=== PATIENT | female | born 1960 | race African-American/Black ===

== ENCOUNTER 2019-02-15 10:43 | Inpatient (IN) | payer MEDICAID, OTHER ==
[~2019-02-15] VITALS: Ht 160 cm; Wt 80.3 kg
[~2019-02-15 10:43] MED LIST: CLON0.1T PO; HYDR-523 PO; IBUP50DR41 PO; RANI15SY PO
[2019-02-15] MEDS ORDERED: SODIUM CHLORIDE 0.9% 1,000 ML IV ONE (11:44)
[2019-02-15] MEDS ORDERED: FAMOTIDINE 20MG/2ML VIAL IV ONE (12:15)
[2019-02-15 12:31] LABS: CLARITY URINE TURBID (CLEAR); COLOR URINE DARK YELLOW (YELLOW); KETONES URINE 1+ (NEGATIVE); LEUKOCYTE ESTERASE URINE 2+ (NEGATIVE); NITRITE URINE POSITIVE (NEGATIVE); OCCULT BLOOD URINE NEGATIVE (NEGATIVE); PH URINE 5.5 (4.5-8.0); PROTEIN URINE 1+ (NEGATIVE); SPECIFIC GRAVITY URINE 1.033 (1.005-1.030)
[2019-02-15 12:33] LABS: BASOPHILS % 0.4 % (0.0-2.0); HEMATOCRIT. 37.8 % (36.0-48.0); HEMOGLOBIN. 12.6 g/dL (12.0-16.0); LYMPHOCYTES % 35.5 % (20.0-50.0); MEAN CORPUSCULAR VOLUME 92.7 fL (81.0-99.0); MEAN PLATELET VOLUME 8.4 fl (7.4-10.4); MONOCYTES % 14.4 % (2.0-8.0); NEUTROPHILS % 47.7 % (40.0-76.0); PLATELET 289 x1000/uL (130-400); RED BLOOD CELL COUNT 4.07 mill/uL (4.2-5.4); RED CELL DISTRIBUTION WIDTH 14.7 % (11.6-14.6)
[2019-02-15 12:41] LABS: CHLORIDE 107 mEq/L (98-107)
[2019-02-15 12:44] LABS: PARTIAL THROMBOPLASTIN TIME 30.1 sec (23.4-31.0); PROTHROMBIN TIME 10.2 sec (9.6-11.0)
[2019-02-15 12:45] LABS: ETHANOL BLOOD < 10 mg/dL
[2019-02-15 12:46] LABS: *AMPHETAMINES SCREEN URINE NEGATIVE (NEGATIVE)
[2019-02-15 12:47] LABS: *BARBITURATES SCREEN URINE NEGATIVE (NEGATIVE); *BENZODIAZEPINES SCREEN URINE NEGATIVE (NEGATIVE); *COCAINE SCREEN URINE NEGATIVE (NEGATIVE); CANNABINOID URINE SCREEN PRESUMTIVE POSITIVE (NEGATIVE); METHADONE URINE SCREEN NEGATIVE (NEGATIVE); OPIATES URINE SCREEN NEGATIVE (NEGATIVE); PHENCYCLIDINE URINE SCREEN NEGATIVE (NEGATIVE)
[2019-02-15] MEDS ORDERED: PIPERACILLIN/TAZ 3.375G PREMIX 50 ML IV ONE (14:00)
[2019-02-15] MEDS ORDERED: ACETAMINOPHEN 325MG TABLET PO PRN (15:00)
[2019-02-15] MEDS ORDERED: ONDANSETRON HCL 4MG/2ML INJ IV PRN (15:00)
[2019-02-15 16:00] VITALS: BP 129/68
[2019-02-15] MEDS ORDERED: POTASSIUM CHLORIDE 20MEQ TABLET SR PO NR (17:00)
[2019-02-15 17:15] VITALS: BP 129/68
[2019-02-15] MEDS ORDERED: CEFTRIAXONE 1 G PREMIX 50 ML IV SCH (18:00)
[2019-02-15] MEDS: HYDROMORPHONE HCL/PF 2MG/ML CPJ IV PRN (18:10)
[2019-02-15] MEDS ORDERED: DICL75TA5 MT (18:38)
[2019-02-15 20:00] VITALS: BP 120/71
[2019-02-16] VITALS: BP 128/62
[2019-02-16] MEDS: HYDROMORPHONE HCL/PF 2MG/ML CPJ IV PRN ×4 (00:21→21:28)
[2019-02-16 04:00] VITALS: BP 116/60
[2019-02-16 07:33] LABS: CHLORIDE 109 mEq/L (98-107)
[2019-02-16 07:34] LABS: BASOPHILS % 0.3 % (0.0-2.0); EOSINOPHILS % 4.3 % (0.0-5.0); HEMATOCRIT. 37.2 % (36.0-48.0); HEMOGLOBIN. 12.4 g/dL (12.0-16.0); LYMPHOCYTES % 37.1 % (20.0-50.0); MEAN CORPUSCULAR HEMOGLOBIN 31.1 pg (28.0-32.0); MEAN CORPUSCULAR VOLUME 93.4 fL (81.0-99.0); MEAN PLATELET VOLUME 8.6 fl (7.4-10.4); MONOCYTES % 13.5 % (2.0-8.0); NEUTROPHILS % 44.8 % (40.0-76.0); PLATELET 278 x1000/uL (130-400); RED BLOOD CELL COUNT 3.98 mill/uL (4.2-5.4); RED CELL DISTRIBUTION WIDTH 14.4 % (11.6-14.6)
[2019-02-16 08:00] VITALS: BP 123/72
[2019-02-16] MEDS: FAMOTIDINE 20MG/2ML VIAL IV SCH (08:19)
[2019-02-16 12:00] VITALS: BP 134/82
[2019-02-16 16:00] VITALS: BP 138/79
[2019-02-16] MEDS: CEFTRIAXONE 1 G PREMIX 50 ML IV SCH (17:39)
[2019-02-16 20:00] VITALS: BP 158/73
[2019-02-17] VITALS: BP 135/62
[2019-02-17] MEDS: HYDROMORPHONE HCL/PF 2MG/ML CPJ IV PRN ×4 (02:11→22:53)
[2019-02-17 04:00] VITALS: BP 121/61
[2019-02-17 07:05] LABS: CHLORIDE 106 mEq/L (98-107)
[2019-02-17 07:06] LABS: BASOPHILS % 0.5 % (0.0-2.0); EOSINOPHILS % 2.6 % (0.0-5.0); HEMATOCRIT. 36.9 % (36.0-48.0); HEMOGLOBIN. 12.1 g/dL (12.0-16.0); LYMPHOCYTES % 45.1 % (20.0-50.0); MEAN CORPUSCULAR HEMOGLOBIN 30.7 pg (28.0-32.0); MEAN CORPUSCULAR VOLUME 93.8 fL (81.0-99.0); MEAN PLATELET VOLUME 9.5 fl (7.4-10.4); MONOCYTES % 11.1 % (2.0-8.0); NEUTROPHILS % 40.7 % (40.0-76.0); PLATELET 171 x1000/uL (130-400); RED BLOOD CELL COUNT 3.93 mill/uL (4.2-5.4); RED CELL DISTRIBUTION WIDTH 14.5 % (11.6-14.6)
[2019-02-17 08:00] VITALS: BP 121/71
[2019-02-17] MEDS: FAMOTIDINE 20MG/2ML VIAL IV SCH (09:27)
[2019-02-17 12:00] VITALS: BP 124/70
[2019-02-17] MEDS ORDERED: LIDOCAINE HCL 1% 20ML VIAL (Pyxis) INJ ONE (14:37)
[2019-02-17] MEDS ORDERED: SODIUM BICARBONATE 4% (2.4MEQ) 5ML VIAL IV ONE (14:38)
[2019-02-17 16:00] VITALS: BP 105/57
[2019-02-17] MEDS: CEFTRIAXONE 1 G PREMIX 50 ML IV SCH (18:04)
[2019-02-17 20:00] VITALS: BP 115/67
[2019-02-18] VITALS: BP 106/66
[2019-02-18] MEDS: HYDROMORPHONE HCL/PF 2MG/ML CPJ IV PRN (02:23)
[2019-02-18 04:00] VITALS: BP 102/61
[2019-02-18 07:00] LABS: CHLORIDE 105 mEq/L (98-107)
[2019-02-18 07:05] LABS: BASOPHILS % 0.5 % (0.0-2.0); EOSINOPHILS % 2.7 % (0.0-5.0); HEMATOCRIT. 38.7 % (36.0-48.0); HEMOGLOBIN. 12.9 g/dL (12.0-16.0); LYMPHOCYTES % 40.1 % (20.0-50.0); MEAN CORPUSCULAR HEMOGLOBIN 31.2 pg (28.0-32.0); MEAN CORPUSCULAR VOLUME 93.2 fL (81.0-99.0); MEAN PLATELET VOLUME 8.5 fl (7.4-10.4); MONOCYTES % 11.6 % (2.0-8.0); NEUTROPHILS % 45.1 % (40.0-76.0); PLATELET 316 x1000/uL (130-400); RED BLOOD CELL COUNT 4.15 mill/uL (4.2-5.4)
[2019-02-18 08:00] VITALS: BP 109/67
[2019-02-18] MEDS: FAMOTIDINE 20MG/2ML VIAL IV SCH (08:48)
[2019-02-18 12:00] VITALS: BP 115/67
[2019-02-18] MEDS ORDERED: IOHEXOL-300 100 ML BOTTLE ONE (14:33)
[2019-02-18] MEDS ORDERED: SIMETHICONE 40 MG/0.6 ML 30ML ONE (14:33)
[2019-02-18] MEDS ORDERED: PROPOFOL 200MG/20ML VIAL IV ONE (15:58)
[2019-02-18] MEDS ORDERED: ROCURONIUM BROMIDE 10MG/ML VIAL 5ML IV ONE (15:58)
[2019-02-18] MEDS ORDERED: NEOSTIGMINE METHYLSULFATE 1MG/ML 10 ML VIAL ONE (15:58)
[2019-02-18] MEDS ORDERED: FENTANYL CITRATE/PF 50MCG/ML 2ML VIAL ONE (15:58)
[2019-02-18] MEDS ORDERED: GLYCOPYRROLATE 0.2 MG/ML 2ML VIAL ONE (15:59)
[2019-02-18] MEDS ORDERED: MIDAZOLAM HCL 2 MG/2 ML VIAL ONE (15:59)
[2019-02-18] MEDS ORDERED: DEXAMETHASONE 4MG/ML 1ML VIAL ONE (16:02)
[2019-02-18] MEDS ORDERED: ONDANSETRON HCL 4MG/2ML INJ ONE (16:02)
[2019-02-18] MEDS ORDERED: SODIUM CHLORIDE 0.9% 10ML VIAL ONE ×2 (16:49→16:59)
[2019-02-18] MEDS ORDERED: EPHEDRINE SULFATE 50MG/ML VIAL ONE ×2 (16:49→16:59)
[2019-02-18] MEDS ORDERED: PHENYLEPHRINE HCL 10 MG/ML 1ML (IV VIAL) IV ONE (16:59)
[2019-02-18] MEDS ORDERED: ONDANSETRON HCL 4MG/2ML INJ IV PRN (17:15)
[2019-02-18] MEDS ORDERED: LABETALOL 5MG/ML SYR 20 MG/4 ML SYRINGE IV PRN (17:15)
[2019-02-18] MEDS ORDERED: MEPERIDINE HCL/PF 25MG/ML CPJ IV PRN (17:15)
[2019-02-18] MEDS ORDERED: HYDROMORPHONE HCL/PF 2MG/ML CPJ IV PRN (17:15)
[2019-02-18] MEDS ORDERED: CEFTRIAXONE 1 G PREMIX 50 ML IV SCH (18:05)
[2019-02-18 20:34] VITALS: BP 96/68
[2019-02-19] VITALS: BP 117/67
[2019-02-19 04:00] VITALS: BP 100/58
[2019-02-19 08:00] VITALS: BP 106/62
[2019-02-19] MEDS: FAMOTIDINE 20MG/2ML VIAL IV SCH (08:09)
[2019-02-19 08:43] VITALS: BP 106/62
== END 2019-02-19 10:26 | disposition home or self-care (01) ==
LOC: ER 10:43 → 6EST 13:46 → EDBEDREQTM 14:02 → EDBEDREQ 14:02 → ENRESERV 14:57
PROVIDERS: ADMIT Internal Medicine; ATTEND Internal Medicine
PROC: 0FC98ZZ Extirpation of Matter from Common Bile Duct, Via Natural or Artificial Opening Endoscopic (ICD-10-PCS; principal; 2019-02-18)
PROC: BF111ZZ Fluoroscopy of Biliary and Pancreatic Ducts using Low Osmolar Contrast (ICD-10-PCS; 2019-02-18)
PROC: 0FPB8DZ Removal of Intraluminal Device from Hepatobiliary Duct, Via Natural or Artificial Opening Endoscopic (ICD-10-PCS; 2019-02-18)
DX: K80.30 Calculus of bile duct with cholangitis, unspecified, without obstruction (principal); K85.10 Biliary acute pancreatitis without necrosis or infection; E66.9 Obesity, unspecified; N39.0 Urinary tract infection, site not specified; F12.90 Cannabis use, unspecified, uncomplicated; E87.6 Hypokalemia; Z90.49 Acquired absence of other specified parts of digestive tract; Z68.31 Body mass index [BMI] 31.0-31.9, adult; Z90.710 Acquired absence of both cervix and uterus; Z90.721 Acquired absence of ovaries, unilateral; Z88.2 Allergy status to sulfonamides; Z79.899 Other long term (current) drug therapy
CPT/HCPCS: 36415; 74330; 76000; 76705; 76770; 80048; 80076; 80305; 80320; 84484; 88300; 93970; 99285; C1726; C1769; C1893; J0696; J1100; J1170; J2250; J2370; J2405; J2543; J2704; J2710; J3010; J3490; J7030; Q9967; G0480